=== PATIENT | female | born 1990 | race Caucasian/White ===

== ENCOUNTER 2018-09-16 10:20 | Emergency (ER) | payer OTHER ==
[2014-03-17 15:46] VITALS: Wt 47.6 kg
[~2018-09-16 10:20] MED LIST: ALBU2.5V36 IH; ALBU8.5H12 IH; AMIT-106 PO; Azithromycin PO; CIPR-344 PO; CITA-156 PO; DULERAPT INH; FLU44R INH; MONT10TA PO; PRED-420 PO; PRED20TA6 PO; SINGULAR; [UNRECOGNIZED DRUG - CODE] MC
--- NOTE | 2018-09-16 10:29 | ER Report ---
History and Physical Time Seen By MD: 10:29 HPI/ROS CHIEF COMPLAINT: Shortness breath, wheezing HISTORY OF PRESENT ILLNESS: Patient is a 28-year-old female here with complaints of shortness breath, exertional dyspnea, wheezing which is been ongoing for the past several days. Patient does have a history of asthma requiring intubation 2 and she has been taking her home rescue inhaler however reports that she is currently out of her rescue inhaler and had run out of her home albuterol nebulizer treatments previously. Patient is well-appearing at time of evaluation with oxygen saturations of 90% on room air with audible wheezing in all lung nicole. Patient does report a cough productive of greenish yellow sputum. Patient is hemodynamically stable with no respiratory retractions at time of evaluation. REVIEW OF SYSTEMS: Constitutional: No fever, no chills. Eyes: No discharge. ENT: No sore throat. Cardiovascular: No chest pain, no palpitations. Respiratory: + cough, + wheezing and shortness of breath. Gastrointestinal: No abdominal pain, no vomiting. Genitourinary: No hematuria. Musculoskeletal: No back pain. Skin: No rashes. Neurological: No headache. Allergies: Coded Allergies: No Known Drug Allergies (Unverified , 10/06/14) Home Meds Active Scripts Montelukast Sodium (SINGULAIR) 10 Mg Tablet, 1 TAB PO QDAY, #30 TAB Prov:JOJO ALLEN DO 09/16/18 Albuterol Sulfate 0.083% (ALBUTEROL SULFATE 0.083%) 2.5 Mg/3 Ml Vial.neb, 2.5 MG INH Q4-6H PRN for WHEEZING, #30 INH Prov:JOJO ALLEN DO 09/16/18 Prednisone (PREDNISONE) 50 Mg Tablet, 50 MG PO QDAY for 5 Days, #5 TAB Prov:JOJO ALLEN DO 09/16/18 Albuterol Sul Hfa 90 Mcg 8 Gm (VENTOLIN HFA 90 MCG 8 GM) 8.5 Gm Hfa.aer.ad, 2 PUFF IH Q4-6H PRN for DYSPNEA, #1 INHALER 1 Refill Prov:MADELYN HERNANDEZ MD 03/18/14 Reported Medications Beclomethasone Dipropionate (Qvar Redihaler) 80 Mcg/Actuation Hfa.aeroba, 2 PUFF IH 09/16/18 Discontinued Reported Medications Citalopram Hydrobromide (CELEXA) 20 Mg Tablet, 20 MG PO QDAY PRN for anxiety, #5 TAB 10/06/14 Mometasone/Formoterol (DULERA 200 MCG/5 MCG INHALER) 13 Gm Inh, 13 GM INH, INH 08/23/13 Discontinued Scripts Albuterol Sulfate 0.083% (ALBUTEROL SULFATE 0.083%) 2.5 Mg/3 Ml Vial.neb, 2.5 MG IH Q4-6H for shortness of breath, #40 2 Refills Prov:ELZBIETA MCQUEEN DO 01/16/15 Hx Smoking: No Smoking Status: Never Smoker Exposure to Second Hand Smoke?: No Hx Substance Use Disorder: No Hx Alcohol Use: Yes Constitutional Vital Sign - Last 24 Hours 09/16/18 09/16/18 09/16/18 09/16/18 10:23 10:25 10:30 10:50 Temp 98.2 Pulse 97 96 Resp 17 B/P (MAP) 125/86 (99) 125/86 119/83 (95) Pulse Ox 90 90 O2 Delivery Room Air 09/16/18 09/16/18 09/16/18 09/16/18 11:00 11:00 11:00 11:20 Pulse 92 93 Resp 20 B/P (MAP) 121/54 (76) Pulse Ox 90 97 O2 Delivery Room Air 09/16/18 09/16/18 09/16/18 09/16/18 11:25 11:30 11:55 11:58 Pulse 94 100 98 Resp 20 B/P (MAP) 112/82 (92) Pulse Ox 98 95 09/16/18 12:00 B/P (MAP) 112/72 (85) Physical Exam General Appearance: The patient is alert, has no immediate need for airway protection and no signs of toxicity. No acute distress Eyes: Pupils equal and round no pallor or injection. ENT, Mouth: Mucous membranes are moist. Respiratory: There are no retractions,+ diffuse wheezing in all lung nicole with no rhonchi or rales Cardiovascular: Regular rate and rhythm. Gastrointestinal: Abdomen is soft and non tender, no masses, bowel sounds normal. Neurological: No focal neurological deficits Skin: Warm and dry, no rashes. Musculoskeletal: Neck is supple non tender. Extremities are nontender, nonswollen and have full range of motion. DIFFERENTIAL DIAGNOSIS: After history and physical exam differential diagnosis was considered for shortness of breath including but not limited to pulmonary infectious process, COPD, asthma, pulmonary embolus and congestive heart failure. Medical Decision Making EKG/Imaging Imaging PATIENT NAME: Gilbert Lala : 1990 MR: [id number] V: [id number] EXAM DATE: ORDERING PHYSICIAN: JOJO ALLEN TECHNOLOGIST: Location: [facility] - [place] Patient: Gilbert Lala : 1990 Visit/Account:[id number] Date of Sevice: 09/16/2018 CHEST SINGLE AP 10:41 AM COMPARISON: PA lateral chest 03/16/2014 HISTORY: SOB FINDINGS: CARDIAC/VASC: No cardiac silhouette abnormality or cardiomegaly. Unremarkable pulmonary vasculature. MEDIASTINUM: No visible mass or adenopathy. LUNGS/PLEURA: No pneumothorax. No significant pulmonary parenchymal abnormalities. No costophrenic angle blunting to suggest a large effusion. BONES: No fracture or visible bony lesion. OTHER: Metallic nipple piercing on the left. IMPRESSION: No acute cardiopulmonary process. ED Course/Re-evaluation ED Course Patient is a 28-year-old female here with complaints of wheezing, history of asthma, increasing dyspnea on exertion presenting with wheezing in all lung nicole. Patient has been taking her HFA inhaler but ran out today and had run out of her nebulizer treatments previously. Chest x-ray is complete, patient was given Solu-Medrol 125 mg, magnesium 2 g, a DuoNeb with a subsequent continuous nebulizer of albuterol. Peak flows were measured before and after and patient had significant improvement in breathing increasing to approximately 350. Patient was given scripts for prednisone 5 day course for stab to be taken tonight, albuterol inhaler to go, refills on albuterol nebulizer vials. Patient was advised to return promptly if she worsens or fail to improve. Return precautions provided. Close PCP follow-up recommended. Decision to Disposition Date: September 16, 2018 Decision to Disposition Time: 12:57 Depart Departure Latest Vital Signs Vital Signs Date Time Temp Pulse Resp B/P (MAP) Pulse Ox O2 Delivery O2 Flow Rate FiO2 09/16/18 12:00 112/72 (85) 09/16/18 11:58 98 20 09/16/18 11:55 95 09/16/18 11:00 Room Air 09/16/18 10:25 98.2 Impression: Primary Impression: Asthma attack Condition: Improved Disposition: HOME OR SELF-CARE Referrals: JESSI COLEMAN (PCP) New Scripts Montelukast Sodium (SINGULAIR) 10 Mg Tablet 1 TAB PO QDAY, #30 TAB Prov: JOJO ALLEN DO 09/16/18 Albuterol Sulfate 0.083% (ALBUTEROL SULFATE 0.083%) 2.5 Mg/3 Ml Vial.neb 2.5 MG INH Q4-6H PRN for WHEEZING, #30 INH Prov: JOJO ALLEN DO 09/16/18 Prednisone (PREDNISONE) 50 Mg Tablet 50 MG PO QDAY for 5 Days, #5 TAB Prov: JOJO ALLEN DO 09/16/18 Patient Instructions: Asthma (ED) Additional Instructions: Please take your inhaler or nebulizer every 4-6 hours as needed. Please take prednisone starting tonight 50 mg once daily for 5 days without taper. Please consider taking Singulair 1 tablet daily before bed for treatment of suspected environmental allergies exacerbating your asthma. Please return promptly if you have increased difficulty breathing, refractory wheezing, fevers. Please follow- up with your family doctor in the next 24-48 hours for reevaluation. JOJO ALLEN DO September 16, 2018 10:29
[2018-09-16] MEDS ORDERED: ALBUTEROL 2.5 MG/3 ML NEB NEB ONE (10:40)
[2018-09-16] MEDS ORDERED: ALBUTEROL/IPRATROPIUM 3 ML NEB NEB ONE (10:40)
[2018-09-16] MEDS ORDERED: predniSONE 20 MG TAB PO ONE (10:40)
[2018-09-16] MEDS ORDERED: BECL10.62 IH (10:41)
[2018-09-16] MEDS ORDERED: methylPREDNIS SUCC 125 MG/2ML IVP ONE (10:45)
[2018-09-16] MEDS ORDERED: MAGNESIUM SUL* 2 GM/50 ML IVPB 50 ML IVPB ONE (10:45)
--- NOTE | 2018-09-16 11:01 | RADIOLOGY IMAGING REPORT ---
FACILITY: [facility] - [place] PATIENT NAME: Gilbert Lala : 1990 MR: [id number] V: [id number] EXAM DATE: ORDERING PHYSICIAN: JOJO ALLEN TECHNOLOGIST: Location: [facility] Patient: Gilbert Lala : 1990 Visit/Account:[id number] Date of Sevice: 09/16/2018 CHEST SINGLE AP 10:41 AM COMPARISON: PA lateral chest 03/16/2014 HISTORY: SOB FINDINGS: CARDIAC/VASC: No cardiac silhouette abnormality or cardiomegaly. Unremarkable pulmonary vasculatu re. MEDIASTINUM: No visible mass or adenopathy. LUNGS/PLEURA: No pneumothorax. No significant pulmonary parenchymal abnormalities. No costophrenic angle blunting to suggest a large effusion. BONES: No fracture or visible bony lesion. OTHER: Metallic nipple piercing on the left. IMPRESSION: No acute cardiopulmonary process. Report Dictated By: Jomar Ortez at 09/16/2018 10:57 AM Report E-Signed By: Jomar Ortez at 09/16/2018 10:58 AM WSN:[id number]
[2018-09-16 12:30] VITALS: BP 123/84
[2018-09-16] MEDS ORDERED: ALBUTEROL 8 GM INHALER INH ONE (13:00)
[2018-09-16] MEDS ORDERED: MONT10TA PO (13:00)
[2018-09-16] MEDS ORDERED: PRED50TA22 PO (13:00)
[2018-09-16] MEDS ORDERED: ALBU2.5V36 INH (13:00)
== END 2018-09-16 13:13 | disposition home or self-care (01) ==
LOC: ER 10:30
DX: J45.901 Unspecified asthma with (acute) exacerbation (principal)
CPT/HCPCS: 71045; 94640; 94644; 96365; 96375; 99283; J2930; J3475; J7613; J7620